=== PATIENT | female | born 2000 | race Caucasian/White ===

== ENCOUNTER 2024-12-13 23:46 | Emergency (ER) | payer OTHER, SELFPAY ==
--- OUTSIDE RECORDS SUMMARY | 2024-12-13 23:49 | XMS_ITS | Clinical Summary ---
Author Organization [employer] [facility] [employer] Address [facility] [place] [address] Care Team Providers Care Labor And Delivery Nurse Name Role Phone Heaven Snowden MD Primary Care Prov ider Allergies Active Allergy Reactions Criticality Noted Date Comments Sulfa (Sulfonamide Antibiotics) *Unknown Low 05/08/2008 Mom states family hx of severe allergy Medications MELATONIN ORAL Take by mouth. Active ethinyl estradiol-norelges trom (ORTHO EVRA) 150-35 mcg/24 hr patchIndications:U ses contraception Apply 1 Patch on dry, clean, hairless skin once weekly. 12 Patch 3 4 Active Hospital, Clinic, or Other Facility Administered Medication Ordered Dose Route Frequency Start Date End Date Status etonogestrel subdermal implant (NEXPLANON) 1 EachIndications:Encounter for removal and reinsertion of Nexplanon 1 Each Sdrm Q 3 YEARS 04/04/2022 Active Active Problems Problem Noted Date Diagnosed Date Pap smear for cervical cancer screening 01/04/20 24 Overview (01/04/2024): 12/2023 NIL. Plan: Pap due 12/2026. Nexplanon in place 01/21/2019 Resolved Problems Problem Noted Date Diagnosed Date Resolved Date Closed fracture of nasal bon e with routine healing 11/06/2015 08/29/2016 Immunizations Immunization Administration Dates Next Due DTaP 02/25/2008,05/27/2004 [id number] (Pediarix) 05/27/2003,03/26/2003,0 01/14/2003 HIB PRP-OMP (PedvaxHIB) 05/27/2004,03/26/2003, Hepatitis B (Peds) 2002 Inactivated Polio Vaccine 02/25/2008 Influenza, IIV3 (Age 6-35 mos) 05/28/2004 MMR 02/25/2008,01/09/2004 Pneumococcal conj 7-Valent ( Prevnar 7) 05/28/2004,05/27/2003,03/26/2003,2002 Tdap 03/13/2014 Varicella Vaccine 02/25/2008,01/09/2004 Family History Medical History Relation Name Comments Good Health Father Good Health Mother Anesthesia Problem No Family History Asthma No Family History Blood Disease No Family History Cancer-breast No Family History Diabetes No Family History Heart Disease No Family History Relation Name Status Comments Father Mother Social History Tobacco Use Types Packs/Day Years Used Date Smoking Tobacco: Never Smokeless Tobacco: Never Tobacco Cessation:Counseling Given: Yes Comments:no exposure Alcohol Use Standard Drinks/Week Comments Yes 0 (1 standard drink = 0.6 oz pur e alcohol) PHQ-2 Answer Date Recorded PHQ-2 TOTAL SCORE 1 12/27/2023 Social Connections Answer Date Recorded Do you often feel lonely or isolated from those around you? 0 01/10/2024 Alcohol Use Answer Date Recorded How often do you have a drink containing alcohol ? 3 12/27/2023 How many drinks containing a lcohol do you have on a typical day when you are drinking? 0 12/27/2023 How often do you have five or more drinks on one occasion? 0 12/27/2023 Financial Resource Strain Answer Date R ecorded Difficulty of Paying Living Expenses 3 01/10/2024 Difficulty of Paying Living Expenses Not on file 01/10/2024 Food Insecurity Answer Date Recorded Do you worry your food will run out before you are able to buy more? 1 01/10/2024 Transportation Needs Answer Date Record ed Does lack of transportation keep you from medica l appointments? 1 01/10/2024 Does lack of transportation keep you from work, meetings or getting things that you need? 1 01/10/2024 Housing Stability Answer Date Recorded What is your housing situation today? 1 01/10/2024 Utilities Answer Date Recorded Do you have trouble paying f or utilities (for example, heat, electricity, water, phone)? 1 01/10/2024 Comments No Sex and Gender Information Value Date Recorded Sex Assigned at Not on file Legal Sex Female 5:50 AM [employer] Gender Identity Not on file Sexual Orientation Not on file Obstetrics History Para Term AB IAB SAB Ectopic Multiple Livin g Live Births 0 0 0 0 0 0 0 0 0 0 0 Last Filed Vital Signs Vital Sign Reading Time Taken Comments Blood Pressure 125/81 01/10/2024 10:17 AM CDT Pulse 84 01/10/2024 10:17 AM CDT Temperature 36.9 C (98.4 F) 11/03/2020 8:27 AM CDT Respiratory Rate 20 11/17/2015 10:19 AM CDT Oxygen Saturation 99% 01/10/2024 10:17 AM CDT Inhaled Oxygen Concentration - - Weight 90.9 kg (200 lb 8 oz) 12/27/2023 10:20 AM CDT Height 173 cm (5' 8.11) 12/27/2023 10:20 AM CDT Body Mass Index 30.39 12/27/2023 10:20 AM CDT Plan of Treatment Health Maintenance Due Date Last Done Comments HIV for age 15-65 2017 HPV series for age 9-26 (1 - 3-dose series) 2017 Hepatitis C screening for age 18-79 2020 Tetanus booster 03/13/2024 03/13/2014 COVID-19 vaccine series ( season) 2024 BMI (ht and wt on same day) for age 18+ 12/26/2024 12/27/2023, 07/28/2021 Chlamydia for age 16-24 12/26/2024 12/27/2023 Depression screening for age 12+ 12/26/2024 12/27/2023 Influenza Vaccine (Season Ended) 2025 05/28/2004 Pap test for age 21-65 12/26/2026 12/27/2023 Hepatitis B series for 19+ Completed 05/27, 03/26/2003, 01/14/2003, Additional history exists Pneumococcal series for age 6-49 Aged Out 05/28/2004, 05/27/2003, 03/26/2003, Additional history exists No longer eligible based on patient's age to complete this topic Tdap Completed 03/13/2014 Procedures Procedure Name Priority Date/Time Associated Diagnosis Comments GC CHLAMYDIA TRACH PROBE Routine 12/27/2023 11:00 AM CDT Abnormal vaginal bleeding FUR BUYER THIN PREP PAP SCREEN IMAGED Routine 12/27/2023 11:00 AM CDT Cervical cancer screening from Last 3 Months or Most Recently Relevant to Health Maintenance Results * FUR BUYER THIN PREP PAP SCREEN IMAGED (12/27/2023 11:00 AM CDT) Case Report Gynecologic Cytology Report Case: [id number] Authorizing Provider: Heaven Snowden Collected: 12/27/2023 Gordo Bowden MD Ordering Location: [facility] Received: 12/27/2023 1121 Clinic First Screen: Cely Martin Specimen: FUR BUYER ThinPrep Vial Screening, Cervical 01/04/2024 3:57 PM CDT [facility] INTERPRETATION/ RESULT NEGATIVE FOR INTRAEPITHELIAL LESION OR MALIGNANCY (NIL) (none) 01/04/2024 3:57 PM CDT [facility] [facility] at 1557 CDT SPECIMEN ADEQUACY Satisfactory for evaluation No endocervical component seen 01/04/2024 3:57 PM CDT [facility] ENTRAL LABORATORY Date of LMP 501/04/2024 3:57 PM CDT [facility] [facility] Last Pap Date na 01/04/2024 3:57 PM CDT [facility] [facility] Last Pap Result First Pap/Unknown 3:57 PM CDT [facility] [facility] Abnormal Pap or [place] Bx in last 5 years No 01/04/2024 3:57 PM CDT [facility] Menstrual Status Regular Periods 01/04/2024 3:57 PM CDT [facility] [place] Bx Done Today No 01/04/2024 3:57 PM CDT [facility] [facility] Additional Information None given 01/04/2024 3:57 PM CDT [facility] Comment: Cytology is screened at [facility] - [address], [place] [address] and [facility] - [address], [place] [address] and [facility] - [address] [place] [address] Interpreted at [facility] - [address], [place] [address] Automated Review Successful 01/04/2024 3:57 PM CDT [facility] Comment:Specimen processed s uccessfully by automated law instructor device, ThinPrep Imaging System, [employer] Note The pap test is a screening technique, not a diagnostic procedure. It is used primarily to screen for squamous cancers and precursor lesions. Published studies have shown that it is subject to both false negative and false positive results. The pap test should not be used as the sole means to diagnose or exclude pre-malignant and malignant lesions. 01/04/2024 3:57 PM CDT [facility] Other (Cervical) Non-Blood / Unknown 12/27/2023 11:00 AM CDT 12/27/2023 11:21 AM CDT Heaven Snowden MD PATHOLOGY/CYTOLOGY Final Result [facility] [address] [place] [address], [place] * GC & CHLAMYDIA DNA PCR [[id number]] (12/27/2023 11:00 AM CDT) CHLAMYDIA PROBE Negative 9:29 PM CDT [facility] TRAL LABORATORY N GONORRHOEAE PROBE Negative 12/27/2023 9:29 PM CDT [facility] Other VAGINAL SWAB / Unknown Non-Blood / Unknown 12/27/2023 11:00 AM CDT 12/27/2023 11:21 AM CDT Heaven Snowden MD MICROBIOLOGY Fi nal Result [facility] [address] [place] [address], from Last 3 Months or Most Recently Relevant to Health Maintenance Care Teams Labor And Delivery Nurse Relationship Specialty Start Date End Date Heaven Snowden MD [address] [place] [address] PCP - General Family Practice 12/27/23
[2024-12-13 23:56] VITALS: BP 130/93; PULSE 108; RESP 18; TEMP 36.9; O2SAT 100; BMI 23.0
--- NOTE | 2024-12-14 00:10 | ED.GENADULT ---
HPI - General Adult General Date Seen: 12/14/24 Chief complaint: Abdominal Pain Stated complaint: abdominal pain Time Seen by Provider: 12/14/24 00:02 History of Present Illness HPI narrative: 24 yo F presenting to the ER today with lower abdominal pain that began this evening around 10 30 or 11:00 p.m.. She is generally healthy. Her memory she last menstrual cycle was about a week and half ago. She has Nexplanon for control only if she is not . She presents to the ER today with her mother and her boyfriend. Patient notes that she has had trouble with abdominal pain and diarrhea for quite some time but has not gone to the doctor for. She says probably 4 days out of 7 she will have some crampy abdominal pain and loose stools. Today she started having abdominal pain sometime this evening, a probably 7 or 8:00 p.m.. She did not eat anything unusual or have any other clear trigger for the pain tonight. After she got home at about 10 30 or so she was having a loose semi formed bowel movement (perhaps not as watery is her normal diarrhea) when she had a dramatic increase in her pain. She had bilateral pelvic pain that was severe and crampy and sharp. It made her nauseous. She does not have a fever. The pain was so severe tonight that was uncharacteristically bad. She finally felt compelled to come to the ER. Her uncle does have a history of inflammatory bowel disease. No personal history of IBD. No recent antibiotics. No recent travel or suspicious food. Related Data Allergies Allergy/AdvReac Type Severity Reaction Status Date / Time Sulfa (Sulfonamide Allergy Unknown Verified 12/14/24 02:48 Antibiotics) [facility] Social History Non-prescribed substance use: denies use Exam Narrative: Exam Narrative: Constitutional: Appears well-developed and well-nourished. Alert. Conversant. Non toxic. HENT: Head: Atraumatic. Nose: Nose normal. Mouth/Throat: Oral mucosa is clear and moist. no trismus. Pharynx normal. Tonsils symmetric. No tonsillar enlargement, erythema, or exudate. Eyes: Conjunctivae normal. EOM normal. Pupils equal, round, and reactive to light. No scleral icterus. Neck: Normal range of motion. Neck supple. No tracheal deviation present. Cardiovascular: Normal rate, regular rhythm. No gallop. No friction rub. No murmur heard. Symmetric radial artery pulses Pulmonary/Chest: Effort normal. No stridor. No respiratory distress. No wheezes. No rales. No rhonchi . No tenderness. Abdominal: Soft. Bowel sounds normal. No distension. No mass. RLQ> LLQ tenderness. No rebound. No guarding. No upper abdominal tenderness. No Cortes sign. No CVA tenderness. Musculoskeletal: RUE: Normal range of motion. No tenderness. No deformity LUE: Normal range of motion. No tenderness. No deformity RLE: Normal range of motion. No edema. No tenderness. No deformity LLE: Normal range of motion. No edema. No tenderness. No deformity Neurological: Alert and oriented to person, place, and time. Normal strength. CN II-VII intact. No sensory deficit. GCS eye subscore is 4. GCS verbal subscore is 5. GCS motor subscore is 6. Normal coordination Skin: Skin is warm and dry. No rash noted. No pallor. Normal capillary refill. Psychiatric: Normal mood. Normal affect. Const: Vital Signs, click to edit/add: Vital Signs - 24 hr 12/13/24 23:56 12/14/24 03:42 Temperature 98.4 F Pulse Rate [Left P ulse Oximeter] 108 H 98 Respiratory Rate 18 17 Blood Pressure [Ri ght Upper Arm] 130/93 H 117/79 Pulse Oximetry 100 98 Oxygen Delivery Me thod Room Air Room Air Course Vital Signs Vital signs: Initial Vital Signs Temperature 98.4 F 12/13/24 23:56 Temperature Source Temporal Artery Scan 12/13/24 23:56 Pulse Rate 108 H 12/13/24 23:56 Respiratory Rate 18 12/13/24 23:56 Blood Pressure 130/93 H 12/13/24 23:56 Blood Pressure Mean 105 12/13/24 23:56 Blood Pressure Position Sitting 12/13/24 23:56 Pulse Oximetry 100 12/13/24 23:56 Oxygen Delivery Method Room Air 12/13/24 23:56 Vital Signs Temperature 98.4 F 12/13/24 23:56 Pulse Rate 108 H 12/13/24 23:56 Respiratory Rate 18 12/13/24 23:56 Blood Pressure 130/93 H 12/13/24 23:56 Pulse Oximetry 100 12/13/24 23:56 Oxygen Delivery Method Room Air 12/13/24 23:56 Temperature 98.4 F 12/13/24 23:56 Pulse Rate 98 12/14/24 03:42 Respiratory Rate 17 12/14/24 03:42 Blood Pressure 117/79 12/14/24 03:42 Pulse Oximetry 98 12/14/24 03:42 Oxygen Delivery Method Room Air 12/14/24 03:42 Medications Administered Medications: Discontinued Medications Generic Name Dose Route Start Last Admin Trade Name Courtney PRN Reason Stop Dose Admin Sodium Chloride 1,000 mls @ 1,000 mls/hr 12/14/24 00:30 12/14/24 01:07 0.9 % Sodium Chloride 1000 Ml IV 12/14/24 01:29 Infused .Q1H SUKHJINDER Infusion Ketorolac Tromethamine 15 mg 12/14/24 00:24 12/14/24 00:40 Ketorolac 15 Mg/Ml Inj IVP 12/14/24 00:25 15 mg ONCE ONE Administration Medical Decision Making MDM Narrative Medical decision making narrative: Very pleasant 24-year-old female presenting to the ER [facility] for evaluation of bilateral pelvic pain that began fairly abruptly this evening. Leading up to this she does have a history of fairly chronic episodic diarrhea and pelvic pain ongoing for the past couple of years. She does have a family history a with an uncle with inflammatory bowel disease. In terms of her acute pain differential is broad, including- Appendicitis, ovarian cyst, cyst rupture, torsion, complication, Bowel Obstruction, Ulcer, Ischemia, Cholecystitis, Diverticulitis, Pancreatitis, UTI, kidney stone, Enteritis/Colitis, amongst many other etiologies. Laboratory testing does not reveal a cause for the patient's pain. LFTs are mildly abnormal but she is not having any right upper quadrant pain. At this point I do not think this represents acute hepatitis or cholecystitis. Would recommend repeat lab workup with PCP office within the next [address] imaging is obtained and shows multiple findings. First, CT mentions bladder wall thickening. However the patient has no urinary symptoms and urinalysis is normal so I do not think that there is truly an active infection or cystitis. Second the CT scan shows a 4.5 cm cyst of the right ovary with some free fluid near the right adnexa which could suggest probable cyst rupture. At this point the patient's pain is tremendously improved after Toradol and clinically her presentation is not consistent with torsion so I do not think she needs pelvic ultrasound for Doppler flow or immediate OR treatment of her cyst. I suspect that this would correlate with her acute pelvic pain tonight. She is not . Pain is tremendously improved after Toradol given here in the ER. Would recommend return to the ER right away if any worsening or recurring pain. Otherwise follow up for repeat pelvic ultrasound in 1-2 months. Third, this CT does show evidence for thickening of the rectum and sigmoid colon. The patient does endorse a fairly chronic history of episodic diarrhea and some abdominal symptoms. No acute change or new bloody or mucousy diarrhea to raise high concern for active infectious colitis. Concern here is that she may have autoimmune or inflammatory bowel disease. At this point no acute surgical emergency such as stricture, obstruction, perforation, fistula, abscess. I think the patient is safe for outpatient workup. Would need outpatient stool studies to look for infection such as bacterial enteritis or C diff (no clear risk factors for those) and GI referral for colonoscopy. No life threatening cause or need for emergent surgery or hospital admission is detected today. The patient was advised that if symptoms do not completely resolve within another 24 hours re-evaluation with primary care or return to the ED is indicated. The patient also understands that if they worsen, they should return to the ER right away. I discussed the uncertainty about the diagnosis and answered the patient's questions. Abdominal pain return precautions discussed. Lab Data Labs: Lab Results 12/14/24 Range/Units 00:25 WBC 10.30 (4.50-11.00) K/uL RBC 5.07 (4.00-5.20) m/uL Hgb 14.3 (12.0-16.0) gm/dL Hct 42.8 (33.0-51.0) % MCV 84 (80-100) fL MCH 28 (26-34) pg MCHC 33 (32-36) gm/dL RDW Coeff of Marylou 12.7 (11.5-15.5) % Plt Count 293 (140-440) K/uL Neut % (Auto) 65.5 (42.0-72.0) % Lymph % (Auto) 28.5 (20-44) % Desha % (Auto) 4.9 (0.0-11.0) % Eos % (Auto) 0.8 (0.0-7.0) % Baso % (Auto) 0.1 (0.0-3.0) % Neut # (Auto) 6.75 (1.7-7.0) K/uL Lymph # (Auto) 2.94 H (0.90-2.90) K/uL Desha # (Auto) 0.50 (0.00-0.90) K/UL Eos # (Auto) 0.08 (0.00-0.50) K/uL Baso # (Auto) 0.01 (0.00-0.30) K/uL Abs Immat Gran (auto) 0.02 (0.00-0.30) K/uL Imm/Tot Granulo (auto) 0.2 % Sodium 139 (135-149) mmol/L Potassium 3.9 (3.6-5.1) mmol/L Chloride 102 (96-114) mmol/L Carbon Dioxide 26 (20-32) mmol/L Anion Gap 11 (7-15) mEq/L BUN 10 (5-24) mg/dL Creatinine 0.8 (0.5-1.5) mg/dL Estimated Creat Clear 119.28 Estimated GFR 107 ml/min Glucose 115 (60-115) mg/dL Calcium 9.6 (8.4-10.6) mg/dL Total Bilirubin 0.6 (0.1-1.5) mg/dL AST 39 H (12-35) U/L ALT 40 H (4-35) U/L Alkaline Phosphatase 89 (40-150) U/L Total Protein 9.0 H (6.0-8.3) g/dL Albumin 5.2 H (3.3-5.0) g/dL Lipase 91 (23-300) U/L Urine Color Yellow (Yellow) Urine Appearance Turbid A (Clear) Urine pH 6.0 (5.0-8.5) Ur Specific [place] 1.010 (1.000-1.030) Urine Protein Negative (Negative) Urine Glucose (UA) Negative (Negative) Urine Ketones Negative (Negative) Urine Blood Negative (Negative) Urine Nitrite Negative (Negative) Urine Bilirubin Negative (Negative) Urine Urobilinogen 0.2 (0.2-1.0) Ur Leukocyte Esterase Negative (Negative) Urine RBC 0-2 (0-2) Urine WBC 2-5 (0-5) Ur Squamous Epith Cells Moderate A (None-Few) Urine Bacteria Few A (None) Urine HCG, Qual Negative (Negative) Imaging Data CT scan - abdomen: Attestation: I have reviewed the pertinent imaging results. Radiologist's impression: IMPRESSION: 1. Probable mild rectosigmoid wall thickening may reflect mild colitis. 2. Small volume pelvic free fluid, somewhat favoring the right adnexa. Right adnexal cyst measuring 4.5 cm. Findings may reflect sequelae of recent cyst rupture. 3. Above-mentioned free-fluid courses along the appendix, however the appendix maintains its normal caliber without convincing CT evidence of acute appendicitis. 4. Mild bladder wall thickening. Correlate for cystitis. Discharge Plan Discharge Clinical Impression: Cyst of right ovary, Colitis, Abnormal LFTs Patient Disposition: Home, Self-Care Condition: Stable Instructions: Ovarian Cyst (ED), Colitis (ED) Additional Instructions: As we discussed, so for your workup looks reassuring. No signs of any immediate life-threatening emergency or condition that requires immediate surgery. However there are several important findings from your workup. 1. You have a cyst on your right ovary and some fluid next year right ovary would suggest that this cyst probably ruptured tonight and is probably the cause for your pain. Monitor your pain carefully if you have worsening pain or new symptoms such as fever, lightheadedness, or worsening of your condition, please come back to the ER right away. Even if you get better, please follow-up with your regular doctor to arrange a repeat pelvic ultrasound in about 1 or 2 months. 2. You have signs of colitis on her CT scan. This is inflammation of the bottom end of your large intestine. Because of this is not clear. Please follow-up with your regular doctor to recheck for this. You may need to do some stool samples to look for infection and you may need a referral to gastroenterology for colonoscopy. 3. Your liver function blood tests are mildly abnormal. I do not think these are related to your pain tonight. It is important to get them rechecked by your regular doctor within the next 2-to 3 weeks. 4. Please monitor your condition carefully. If you have worsening pain, or new symptoms such as worsening diarrhea, bloody stools, fever, or weakness, or any other problems, please come back to the ER right away. Follow Up/Referrals: Catina Chicas MD [Staff Physician, Pediatrics] Stand Alone Forms: MyHealth Info Instructions
--- NOTE | 2024-12-14 00:24 | CRLHL7_ITS ---
For Patients: As a result of the Century Cures Act, medical imaging exams and procedure reports are released immediately into your electronic medical record. You may view this report before your referring provider. If you have questions, please contact your health care provider. INDICATION: Abdominal pain and diarrhea. TECHNIQUE: CT abdomen and pelvis acquired with 79 cc Isovue 370 IV contrast. COMPARISON: None. FINDINGS: Lower chest: Unremarkable. Liver: Unremarkable. Gallbladder and bile ducts: Unremarkable. Pancreas: Unremarkable. Spleen: Unremarkable. Adrenal glands: Unremarkable. Kidneys: Symmetric renal enhancement. No hydronephrosis or hydroureter. No urinary calculi are appreciated. GI tract: No bowel obstruction. Probable mild rectosigmoid wall thickening. Normal caliber appendix. Vasculature: No abdominal aortic aneurysm. Grossly patent vasculature. Lymph nodes: No suspicious lymphadenopathy. Peritoneum/Abdominal Wall: Small volume pelvic free fluid. No pneumoperitoneum. No acute abdominal wall abnormality. Pelvis: Mild bladder wall thickening. Right adnexal cyst measuring 4.5 cm. Bones: No acute abnormality. IMPRESSION: 1. Probable mild rectosigmoid wall thickening may reflect mild colitis. 2. Small volume pelvic free fluid, somewhat favoring the right adnexa. Right adnexal cyst measuring 4.5 cm. Findings may reflect sequelae of recent cyst rupture. 3. Above-mentioned free-fluid courses along the appendix, however the appendix maintains its normal caliber without convincing CT evidence of acute appendicitis. 4. Mild bladder wall thickening. Correlate for cystitis. Please note that all CT scans at this facility use dose modulation, iterative reconstruction, and/or weight-based dosing when appropriate to reduce radiation dose to as low as reasonably achievable. Dictated by Aristeo Clarke MD @ 12/14/2024 3:16:54 AM (Electronically Signed)
[2024-12-14] MEDS: KETOROLAC 15 MG/ML inj IVP (00:40)
[2024-12-14] MEDS: 0.9 % SODIUM CHLORIDE 1000 ml 1,000 ML IV (00:41)
--- OUTSIDE RECORDS SUMMARY | 2024-12-14 00:45 | XMS_ITS | Clinical Summary ---
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 Gender Identity Not on file Sexual Orientation [...] 12/27/2023 11:00 AM CDT Abnormal vaginal bleeding 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 THIN PREP PAP SCREEN IMAGED Routine 12/27/2023 11:00 AM CDT Cervical cancer screening from Last 3 Months or Most Recently Relevant to Health Maintenance Results * 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 THIN PREP PAP SCREEN IMAGED (12/27/2023 11:00 AM CDT) Case Report Gynecologic Cytology Report Case: [id number] Authorizing Provider: Heaven Snowden Collected: 12/27/2023 Gordo Bowden MD Ordering Location: [facility] Received: 12/27/2023 1121 Clinic First Screen: Cely Martin Specimen: 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 ThinPrep Vial Screening, Cervical 01/04/2024 3:[address] [email or web address] INTERPRETATION/ RESULT NEGATIVE FOR INTRAEPITHELIAL LESION OR MALIGNANCY (NIL) (none) 01/04/2024 3:57 PM CDT [facility] at 1557 CDT SPECIMEN ADEQUACY Satisfactory for evaluation No endocervical component seen 01/04/2024 3:57 PM CDT [facility] Date of LMP 501/04/2024 3:57 PM CDT [facility] [employer] EN[facility] Last Pap Date na 01/04/2024 3:57 PM CDT [facility] [employer] EN[facility] Last Pap Result First Pap/Unknown 3:57 PM CDT [facility] [employer] EN[facility]AL [facility] Abnormal Pap or Roby Bx in last 5 years No 01/04/2024 3:[address] [email or web address] Menstrual Status Regular Periods 01/04/2024 3:[address] [email or web address] Roby Bx Done Today No 01/04/2024 3:57 PM CDT [facility] [employer] [facility] Additional Information None given 01/04/2024 3:57 PM CDT [facility] Comment: Cytology is screened at [facility] - [address], [place] [address] and [facility] - [address], [place] [address] and [facility] - [address] [place] [address] Interpreted at [facility] - [address], [place] [address] Automated Review Successful 01/04/2024 3:57 PM CDT [facility] Comment:Specimen processed s uccessfully by automated dean of student services device, ThinPrep Imaging System, [employer] Note The pap test is a [...] and malignant lesions. 01/04/2024 3:57 PM CDT [facility] Other (Cervical) Non-Blood / Unknown 12/27/2023 11:00 AM CDT 12/27/2023 11:21 AM CDT Heaven Snowden MD PATHOLOGY/CYTOLOGY Final Result [facility] [address] [place] [address], [place] * GC & CHLAMYDIA DNA PCR [[id number]] (12/27/2023 11:00 AM CDT) CHLAMYDIA PROBE Negative 9:29 PM CDT [facility] TR[facility] N GONORRHOEAE PROBE Negative 12/27/2023 9:29 PM CDT [facility] Other VAGINAL SWAB / Unknown Non-Blood / Unknown 12/27/2023 11:00 AM CDT 12/27/2023 11:21 AM CDT Heaven Snowden MD MICROBIOLOGY Fi nal Result [facility] [address] [place] [address], from Last 3 Months or Most Recently Relevant to Health Maintenance Care Teams Bulk Filler Relationship Specialty Start Date End Date Heaven Snowden MD [address] [place] [address] PCP - General Family Practice 12/27/23
[2024-12-14 00:48] LABS: Appearance Urine Turbid (Clear); Basophils Absolute Auto 0.01 K/uL (0.00-0.30); Basophils Percent Auto 0.1 % (0.0-3.0); Bilirubin Urine Negative (Negative); Blood Urine Negative (Negative); Color Urine Yellow (Yellow); Eosinophils Absolute Auto 0.08 K/uL (0.00-0.50); Eosinophils Percent Auto 0.8 % (0.0-7.0); Glucose Urine Negative (Negative); Hematocrit 42.8 % (33.0-51.0); Hemoglobin* 14.3 gm/dL (12.0-16.0); Immature Granulocytes Abs Auto 0.02 K/uL (0.00-0.30); Immature Granulocytes Pct Auto 0.2 %; Ketones Urine Negative (Negative); Leukocyte Esterase Urine Negative (Negative); Lymphocytes Absolute Auto 2.94 K/uL (0.90-2.90); Lymphocytes Percent Auto 28.5 % (20-44); Mean Corpuscular HGB Conc 33 gm/dL (32-36); Mean Corpuscular Hemoglobin 28 pg (26-34); Mean Corpuscular Volume 84 fL (80-100); Monocytes Percent Auto 4.9 % (0.0-11.0); Neutrophils Absolute Auto 6.75 K/uL (1.7-7.0); Neutrophils Percent Auto 65.5 % (42.0-72.0); Nitrite Urine Negative (Negative); Platelet Count* 293 K/uL (140-440); Protein Urine Negative (Negative); RDW Coefficient of Variation % 12.7 % (11.5-15.5); Red Blood Count 5.07 m/uL (4.00-5.20); Urobilinogen Urine 0.2 (0.2-1.0)
[2024-12-14 00:51] LABS: Slide Review Reflex No
[2024-12-14 00:53] LABS: Ur HCG Qualitative* Negative (Negative)
[2024-12-14 00:59] LABS: Albumin* 5.2 g/dL (3.3-5.0); Chloride* 102 mmol/L (96-114); Sodium* 139 mmol/L (135-149)
[2024-12-14 01:00] LABS: Potassium* 3.9 mmol/L (3.6-5.1)
[2024-12-14 01:02] LABS: Alanine Aminotransferase* 40 U/L (4-35); Alkaline Phosphatase* 89 U/L (40-150); Anion Gap 11 mEq/L (7-15); Aspartate Amino Transferase* 39 U/L (12-35); Bilirubin Total* 0.6 mg/dL (0.1-1.5); Blood Urea Nitrogen* 10 mg/dL (5-24); Calcium* 9.6 mg/dL (8.4-10.6); Carbon Dioxide* 26 mmol/L (20-32); Creatinine* 0.8 mg/dL (0.5-1.5); Est. Creatinine Clearance* 119.28; Estimated Glomerular Filt Rate 107 ml/min; Glucose* 115 mg/dL (60-115); Lipase* 91 U/L (23-300)
[2024-12-14 01:16] LABS: Bacteria Urine Few; RBC Urine 0-2 (0-2); Squamous Epithelial Cell Urine Moderate (None-Few)
[2024-12-14 03:42] VITALS: BP 117/79; PULSE 98; RESP 17; O2SAT 98
== END 2024-12-14 04:27 | disposition home or self-care (01) ==
PROVIDERS: Emergency Provider Emergency Medicine; PCP Student in an Organized Health Care Education/Training Program
DX: N83.201 Unspecified ovarian cyst, right side (principal); K52.9 Noninfective gastroenteritis and colitis, unspecified; R94.5 Abnormal results of liver function studies
CPT/HCPCS: 36415; 74177; 80053; 81001; 81025; 83690; 85025; 87086; 96374; 99284; 99285; J1885; J7030; Q9967